=== PATIENT | male | born 1955 | race Caucasian/White ===

== ENCOUNTER 2017-04-12 09:43 | Emergency (ER) | payer MEDICAID ==
[~2017-04-12] VITALS: Ht 163.8 cm; Wt 80.9 kg
[2017-04-12 09:52] VITALS: BP 134/89
--- NOTE | 2017-04-12 09:54 | NUR ---
Patient ambulated to bed 11.
--- NOTE | 2017-04-12 09:55 | NUR ---
61M BIB SELF C/O 02/27 "SHARP" NON RADIATING BL LOWER BACK PAIN X YESTERDAY; PT STATES NO TRAUMA OR INJURY TO SITE AT THIS TIME; PT STATES HE WAS DRIVING WHEN HE EXPERIENCE THE PAIN; SKIN INTACT AND PINK/WARM/DRY; AOX4 WITH EVEN AND STEADY GAIT; RR ARE EVEN AND UNLABORED; PATIENT POSITIONED FOR COMFORT; HOB ELEVATED; BED DOWN. ER MD MADE AWARE OF PT STATUS. NAD; WILL CONTINUE TO MONITOR
--- NOTE | 2017-04-12 10:05 | NUR ---
Dr. Walker evaluating patient at bedside.
[2017-04-12] MEDS ORDERED: NACL 0.9% 1,000 ML IV SCH (10:13)
[2017-04-12] MEDS ORDERED: KETOROLAC 30 MG/ML VIAL IVP ONE (10:15)
[2017-04-12 11:03] LABS: ANION GAP 9.9 (8-16); CARBON DIOXIDE 29.1 mmol/L (21-32); TOTAL BILIRUBIN 0.4 mg/dL (0.0-1.0)
[2017-04-12 11:07] LABS: WHITE BLOOD COUNT (AUTO) 6.5 K/uL (4.8-10.8)
[2017-04-12 11:08] LABS: HEMATOCRIT 45.7 % (36-52); HEMOGLOBIN 15.8 g/dL (12.0-18.0); MEAN CORPUSCULAR HEMOGLOBIN 29 pg (27-31); MEAN CORPUSCULAR HGB CONC 35 g/dL (33-37); MEAN CORPUSCULAR VOLUME 84 fL (80-94); RED BLOOD CELL COUNT(AUTO) 5.42 MIL/uL (4.20-6.10); RED CELL DISTRIBUTION WIDTH 13.2 % (11.6-13.7)
[2017-04-12 11:09] LABS: BASOPHILS % (AUTO) 0.2 % (0.0-2.0); EOSINOPHILS % (AUTO) 0.7 % (0.0-4.0); LYMPHOCYTES # (AUTO) 1.9 K/uL (2.0-11.5); LYMPHOCYTES % (AUTO) 28.9 % (20.5-51.1); MONOCYTES # (AUTO) 0.5 K/uL (0.8-1.0); MONOCYTES % (AUTO) 7.4 % (1.7-9.3); NEUTROPHILS # (AUTO) 4.1 K/uL (1.8-7.7); NEUTROPHILS % (AUTO) 62.8 % (42.2-75.2); PLATELET COUNT (AUTO) 195 K/uL (140-450)
[2017-04-12 11:11] LABS: APPEARANCE,URINE CLEAR (CLEAR); BILIRUBIN,URINE NEGATIVE (NEGATIVE); BLOOD, URINE NEGATIVE (NEGATIVE); COLOR,URINE YELLOW (YELLOW); LEUKOCYTE ESTERASE ,URINE NEGATIVE (NEGATIVE); NITRITE, URINE NEGATIVE (NEGATIVE); UGLUCOSE 3+ (NEGATIVE)
[2017-04-12 11:25] LABS: RBC,URINE NONE SEEN /HPF (0-5); WBC,URINE 0-5 (RARE) /HPF (0-5)
[2017-04-12 12:30] VITALS: BP 127/79
--- NOTE | 2017-04-12 12:30 | NUR ---
Patient discharged with v/s stable. Written and verbal after care instructions given and explained. Patient alert, oriented and verbalized understanding of instructions. Ambulatory with steady gait. All questions addressed prior to discharge. ID band removed. Patient advised to follow up with PMD. Rx of Metformin and Naproxen given. Patient educated on indication of medication including possible reaction and side effects. Opportunity to ask questions provided and answered.
--- NOTE | 2017-04-12 12:38 | NUR ---
Note undone in EDM - 04/12/17 at 1240 by NIDRA Patient discharged with v/s stable. Written and verbal after care instructions given and explained. Patient alert, oriented and verbalized understanding of instructions. Ambulatory with steady gait. All questions addressed prior to discharge. ID band removed. Patient advised to follow up with PMD. Rx of Metformin and Naproxen given. Patient educated on indication of medication including possible reaction and side effects. Opportunity to ask questions provided and answered.
== END 2017-04-12 12:30 | disposition home or self-care (01) ==
LOC: MED 09:43
DX: E11.65 Type 2 diabetes mellitus with hyperglycemia (principal); M54.5 Low back pain; Z87.39 Personal history of other diseases of the musculoskeletal system and connective tissue
CPT/HCPCS: 36415; 80053; 81001; 82948; 84484; 85025; 93005; 96361; 96374; 99285; J1885; J7030

== ENCOUNTER 2022-08-30 17:26 | Emergency (ER) | payer OTHER ==
[~2022-08-30] VITALS: Ht 165.1 cm; Wt 82.6 kg
[2022-08-30 17:52] VITALS: BP 136/40
[2022-08-30 19:29] LABS: BASOPHILS % (AUTO) 0.2 % (0.0-2.0); EOSINOPHILS # (AUTO) 0.1 K/uL (0-0.4); EOSINOPHILS % (AUTO) 1.1 % (0.0-4.0); HEMATOCRIT 41.6 % (36-52); HEMOGLOBIN 14.1 g/dL (12.0-18.0); LYMPHOCYTES # (AUTO) 1.4 K/uL (2.0-11.5); LYMPHOCYTES % (AUTO) 13.8 % (20.5-51.1); MEAN CORPUSCULAR HEMOGLOBIN 29 pg (27-31); MEAN CORPUSCULAR HGB CONC 34 g/dL (33-37); MEAN CORPUSCULAR VOLUME 83.8 fL (80-94); MONOCYTES # (AUTO) 0.8 K/uL (0.8-1.0); MONOCYTES % (AUTO) 7.7 % (1.7-9.3); NEUTROPHILS % (AUTO) 77.2 % (42.2-75.2); PLATELET COUNT (AUTO) 224 K/uL (140-450); RED BLOOD CELL COUNT(AUTO) 4.96 MIL/uL (4.20-6.10); RED CELL DISTRIBUTION WIDTH 13.8 % (11.6-13.7); WHITE BLOOD COUNT (AUTO) 10.3 K/uL (4.8-10.8)
[2022-08-30 20:03] LABS: ALBUMIN 4.4 g/dL (3.4-5.0); ANION GAP 10.8 (8-16); CARBON DIOXIDE 30.3 mmol/L (21-32); CREATININE 1.2 mg/dL (0.6-1.3); POTASSIUM 4.1 mmol/L (3.5-5.1); TOTAL BILIRUBIN 0.3 mg/dL (0.0-1.0)
[2022-08-30] MEDS ORDERED: KETOROLAC 30 MG/ML VIAL IM ONE (20:05)
[2022-08-30] MEDS ORDERED: FAMOTIDINE 20 MG TAB PO ONE (20:05)
[2022-08-30] MEDS ORDERED: DICYCLOMINE HCL LIQUID 20 MG, ALUMINUM HYD/MAG/SIMETHICONE 30 ML, LIDOCAINE VISCOUS 2% ... PO ONE ×3 (20:05)
[2022-08-30] MEDS ORDERED: ACET-10509 PO (20:21)
[2022-08-30] MEDS ORDERED: ONDA-188 PO (20:23)
[2022-08-30] MEDS ORDERED: ACET-5629 PO ×2 (20:23→20:24)
[2022-08-30] MEDS ORDERED: FAMO-90 PO (20:23)
[2022-08-30 20:47] LABS: APPEARANCE,URINE CLEAR (CLEAR); BILIRUBIN,URINE NEGATIVE (NEGATIVE); BLOOD, URINE NEGATIVE (NEGATIVE); COLOR,URINE YELLOW (YELLOW); LEUKOCYTE ESTERASE ,URINE NEGATIVE (NEGATIVE); NITRITE, URINE NEGATIVE (NEGATIVE); UGLUCOSE 3+ (NEGATIVE)
[2022-08-30] MEDS ORDERED: FAMOTIDINE 20 MG TAB ONE (21:14)
[2022-08-30] MEDS ORDERED: KETOROLAC 30 MG/ML VIAL ONE (21:14)
[2022-08-30] MEDS ORDERED: DICYCLOMINE HCL LIQUID 10 MG/5 ML UDC ONE (21:16)
[2022-08-30] MEDS ORDERED: ALUMINUM HYD/MAG/SIMETHICONE 30 ML UDC ONE (21:17)
--- NOTE | 2022-08-30 21:20 | NUR ---
MEDICATED ERMDS ORDER, TOLERATED WELL.
[2022-08-30 22:30] VITALS: BP 119/70
--- NOTE | 2022-08-30 22:30 | NUR ---
Patient discharged with v/s stable. Written and verbal after care instructions given and explained. Patient alert, oriented and verbalized understanding of instructions. Ambulatory with steady gait. All questions addressed prior to discharge. ID band removed. Patient advised to follow up with PMD. Rx of PEPCID, ZOFRAN , PERCOCET, TYLENOL given. Patient educated on indication of medication including possible reaction and side effects. Opportunity to ask questions provided and answered.
== END 2022-08-30 22:30 | disposition home or self-care (01) ==
LOC: MED 17:26
DX: K80.50 Calculus of bile duct without cholangitis or cholecystitis without obstruction (principal); K80.20 Calculus of gallbladder without cholecystitis without obstruction; E11.9 Type 2 diabetes mellitus without complications; I10 Essential (primary) hypertension; E78.00 Pure hypercholesterolemia, unspecified; Z79.4 Long term (current) use of insulin; Z79.899 Other long term (current) drug therapy; Z98.890 Other specified postprocedural states
CPT/HCPCS: 36415; 76705; 80053; 81003; 83605; 83690; 85025; 87040; 87086; 96372; 99285; J1885; Q0092